=== PATIENT | male | born 1985 | race Two or more races ===

== ENCOUNTER 2018-06-21 03:50 | Emergency (ER) | payer OTHER ==
[~2018-06-21] VITALS: Ht 182.9 cm; Wt 145.1 kg
[2018-06-21] MEDS ORDERED: FLONASE ALLERG9.9 ML NASAL (08:45)
[2018-06-21] MEDS ORDERED: ZITHROMAX500 MG PO (08:45)
[2018-06-21] MEDS ORDERED: MUCINEX DM ER1 EAC1 PO (08:45)
[2018-06-21] MEDS ORDERED: IBUPROFEN600 MG PO (08:45)
== END 2018-06-21 08:54 ==
LOC: ER 03:50
DX: J01.10 Acute frontal sinusitis, unspecified (principal); J06.9 Acute upper respiratory infection, unspecified

== ENCOUNTER 2023-10-09 10:14 | Emergency (ER) | payer OTHER ==
[~2023-10-09] VITALS: Ht 182.9 cm; Wt 136.1 kg
[~2023-10-09 10:14] MED LIST: FLONASE ALLERG9.9 ML NASAL; IBUPROFEN600 MG PO; MUCINEX DM ER1 EAC1 PO; ZITHROMAX500 MG PO
[2023-10-09] MEDS ORDERED: 0.9 % SODIUM CHLORIDE 1,000 ML IV STA (11:11)
[2023-10-09] MEDS ORDERED: PROMETHAZINE HCL 25 MG/ML AMPUL IM ONE (11:15)
[2023-10-09] MEDS ORDERED: MEPERIDINE HCL/PF 50 MG/ML VIAL IV ONE ×2 (11:15→14:15)
[2023-10-09 11:53] LABS: HEMATOCRIT 41.2 % (39.0-48.0); HEMOGLOBIN 14.1 g/dL (13-16.00); MEAN CELL VOLUME 89.8 fL (80.0-100.00); MEAN CORPUSCULAR HEMOGLOBIN 30.6 pg (27.00-32.0); MEAN CORPUSCULAR HGB CONC 34.1 g/dl (32.0-36.0); PLATELET COUNT 292 K/uL (150-450); RED BLOOD COUNT 4.59 M/uL (4.00-6.00); RED CELL DISTRIBUTION WIDTH 13.7 % (11.5-14.5)
[2023-10-09 11:59] LABS: URINE APPEARANCE Turbid; URINE BILIRRUBIN Negative (NEGATIVE); URINE BLOOD Trace; URINE COLOR Dark Yellow; URINE GLUCOSE Negative (NEGATIVE); URINE LEUKOCYTE Negative; URINE NITRATE Negative; URINE PROTEIN Trace (NEGATIVE)
[2023-10-09 12:00] LABS: URINE BACTERIA 20.1 uL (0.0-1933); URINE EPITHELIAL CELLS 6.9 uL (0.0-38.8); URINE WBC 16.6 uL (0.0-23.2)
[2023-10-09 12:11] LABS: URINE CRYSTALS MANY /HPF
[2023-10-09] MEDS ORDERED: MORPHINE SULFATE 4 MG/ML VIAL IV ONE (12:30)
[2023-10-09] MEDS ORDERED: TAMSULOSIN HCL 0.4 MG CAP PO ONE (13:00)
[2023-10-09 13:25] LABS: ALBUMIN 3.8 gm/dL (3.4-5.0); BILIRUBIN TOTAL 0.59 mg/dL (0.3-1.2); CALCIUM 9.3 mg/dL (8.5-10.1); CREATININE SERUM 1.26 mg/dL (0.70-1.30); GFR 64.05; GLOBULINA 4.3 G/DL (2.4-3.5); POTASSIUM 4.22 mEq/L (3.5-5.1); TOTAL PROTEIN 8.1 gm/dL (6.4-8.2)
[2023-10-09] MEDS ORDERED: FAMOTIDINE/PF 20 MG/2 ML VIAL IV ONE (14:30)
[2023-10-09] MEDS ORDERED: ONDANSETRON HCL 2 MG/ML VIAL IV ONE (14:30)
== END 2023-10-09 15:45 | disposition home or self-care (01) ==
LOC: ER
PROVIDERS: Emergency Medicine
DX: N20.0 Calculus of kidney (principal); K44.9 Diaphragmatic hernia without obstruction or gangrene; K42.9 Umbilical hernia without obstruction or gangrene